=== PATIENT | female | born 1950 | race Two or more races ===

== ENCOUNTER 2021-10-22 15:19 | Emergency (ER) | payer OTHER ==
[~2021-10-22] VITALS: Ht 160 cm; Wt 86.2 kg
[~2021-10-22 15:19] MED LIST: CARDURA1 MG; CLOPIDOGREL BIS75 MG; DIOVAN320 MG PO; FOLIC ACID1 MG PO; NEURONTIN300 MG; NIFEDIPINE ER30 MG; WELLBUTRIN XL300 MG PO; ZOCOR20 MG PO
== END 2021-10-22 17:10 | disposition home or self-care (01) ==
LOC: ER 15:19
DX: J02.8 Acute pharyngitis due to other specified organisms (principal); D17.9 Benign lipomatous neoplasm, unspecified

== ENCOUNTER 2023-10-08 09:27 | Outpatient (CLI) | payer OTHER | END 2023-10-08 09:36 | disposition home or self-care (01) | LOC: TOM 09:27 | PROVIDERS: ATTEND Psychiatry & Neurology Clinical Neurophysiology | DX: F03.90 Unspecified dementia, unspecified severity, without behavioral disturbance, psychotic disturbance, mood disturbance, and anxiety (principal) ==

== ENCOUNTER 2023-11-02 09:56 | Outpatient (CLI) | payer OTHER | END 2023-11-02 10:03 | disposition home or self-care (01) | LOC: RAD 09:56 | DX: I70.0 Atherosclerosis of aorta (principal); R00.1 Bradycardia, unspecified; E78.2 Mixed hyperlipidemia; G47.33 Obstructive sleep apnea (adult) (pediatric); I25.2 Old myocardial infarction; E55.9 Vitamin D deficiency, unspecified; J30.9 Allergic rhinitis, unspecified; Z98.61 Coronary angioplasty status; I50.9 Heart failure, unspecified; F33.0 Major depressive disorder, recurrent, mild; I34.0 Nonrheumatic mitral (valve) insufficiency; M13.0 Polyarthritis, unspecified; I87.2 Venous insufficiency (chronic) (peripheral) ==

== ENCOUNTER → 2023-11-02 10:58 | Outpatient (CLI) | payer OTHER | END | disposition home or self-care (01) | LOC: NUCLEAR 10:58 | PROVIDERS: ATTEND General Practice | DX: I70.0 Atherosclerosis of aorta (principal); I25.10 Atherosclerotic heart disease of native coronary artery without angina pectoris; Z98.61 Coronary angioplasty status; R42 Dizziness and giddiness ==